=== PATIENT | male | born 1970 | race Caucasian/White ===

== ENCOUNTER → 2019-04-30 10:24 | Day surgery (SDC) | payer OTHER ==
[~2019-04-30 10:24] MED LIST: Acetaminophen TAB* 325 MG PO PRN; Bupivacaine 0.5%* 50 ML MDV VIAL ONE; Dexamethasone IV* 4 MG/ML 1 ML (4 MG) ONE; DiMENhydriNATE IV* 50 MG/ML VIAL IV PUSH PRN; HYDROmorphone INJ1* 1 MG/ML SYRINGE ONE; Ketorolac INJ* 30 MG/ML 1 ML VIAL ONE; Labetalol IV* 5 MG/ML 20 ML VIAL ONE; Lidocaine 1% w EPI 1:100,000* MDV 20 ML VIAL ONE; Lidocaine 2% PF * 5 ML VIAL ONE; Metoclopramide IV* 5 MG/ML 2 ML VIAL ONE; Midazolam* 1 MG/ML 2 ML VIAL (2 MG) ONE; Naloxone* 0.4 MG/ML 1 ML VIAL IV PRN; Ondansetron INJ* 2 MG/ML VIAL ONE; Propofol* 10 MG/ML 20 ML BTL ONE; ceFAZolin 2 GM in NS PREMIX(*) 2 GM/100 ML BAG IVPB ONE; fentaNYL* 50 MCG/ML 2 ML VIAL (100 MCG VIAL) ONE; oxyCODONE TAB* 5 MG TAB PO PRN
[2019-04-30] MEDS: fentaNYL* 50 MCG/ML 2 ML VIAL (100 MCG VIAL) IV PRN ×2 (16:47→16:53)
[2019-04-30] MEDS: Labetalol IV* 5 MG/ML 20 ML VIAL IV PUSH PRN ×2 (17:35→18:03)
[2019-04-30 18:49] VITALS: BP 154/88
--- NOTE | 2019-04-30 23:29 | OP ---
OPERATIVE REPORT: DATE OF OPERATION: 04/30/19 DATE OF : 68 SURGEON: Emil Delacruz MD. FACILITY MAINTENANCE TECHNICIAN: Archana Rayo RPA. ANESTHESIA: General. PRE-OP DIAGNOSIS: Failure, open reduction internal fixation of tibial tubercle/ patellar tendon repair. POST-OP DIAGNOSIS: Failure, open reduction internal fixation of tibial tubercle /patellar tendon repair. OPERATIVE PROCEDURE: Repair left patellar tendon/tibial tubercle repair. ESTIMATED BLOOD LOSS: Less than 25 cc. COMPLICATIONS: None. SUMMARY: Mr. Mccormack is a 48-year-old male who, earlier this month, had fallen and sustained a fracture of his tibial tubercle. His patellar tendon had torn away with a small piece of bone. On 04/09/19, he underwent an ORIF using 1 screw and 2 anchors. He seemed to have a nice solid repair as I was able to flex the knee intraoperatively and the sutures and anchors held. When he presented to the office for his followup visit a week later, x-rays showed that one of the anchors had pulled out and the tibial tubercle fragment was riding high once again. I did obtain advanced imaging that showed that his tendon was still intact. I discussed with Mr. Mccormack that I believed his repair failed and that going in again to repair it should hopefully work better as I would use different fixation to try and hold the patellar tendon and fragment of bone down. Risks of surgery such as infection, scar formation, stiffness, DVT and continued failure of the repair were discussed and he wished to proceed. DESCRIPTION OF PROCEDURE: The patient was brought to the OR and an LMA was placed. Left knee was prepped and then draped. The incision was opened using a 10-blade and I was able to come down and raise full thickness flaps relatively easily. I was able to find patellar tendon quite easily and patellar tendon still appeared to be in good condition. I could find the anchor that I had placed on the lateral side floating and then the FiberWire sutures where they had torn away from the anchor medially. Medial anchor was still retained in his bone. Similarly, I could find the FiberWire deeper underneath where it was broken as well. Those FiberWires were used to pull down the patellar tendon and patella when I sewed the new FiberWire tape. Wound was irrigated using pulse lavage. Old screw and anchor were removed. Holes were used though, so that I used a 2.5 guide and drilled across into the posterior cortex and then measured and placed two 4.5 partially threaded cortical screws. This way there would not be the threads of the screws which would cut through the suture material with tension on them. Great bite was obtained on the medial, OK bite on the lateral. FiberTape was then sewn up along the patellar tendon, lateral border of the patella, and over the top side of the patella. With pulling on the old TigerTape, I was then able to test and pull that down, and it looked like I would get a nice repair. Second FiberTape was then placed. With pulling down on the patella, one was tied and it appeared to hold down quite nicely. Small bony fragment was reapproximated to where it appeared it had been avulsed from. Second FiberTape was sewn down in similar fashion. Two tapes' tails were then sewn together anteriorly and the excess material cut. Screws were then fully tightened down and the lateral screw had a wonderful bite and the medial screw had a bit less of a wonderful bite, but still was nice and tight. Wound was again pulse lavaged. Knee was injected with an additional 10 cc of 0.5% Marcaine mixed with lidocaine with epinephrine. 10 cc had been used along the incision line. Subcutaneous tissues were reapproximated using 2-0 Vicryl. Skin was closed using aman. Sterile dressing and a Cryo/Cuff along with an immobilizer were all applied in the OR. The patient was then extubated in the OR and was stable on transfer to the recovery room. DISPOSITION/DISCHARGE SUMMARY: Mr. Mccormack is a 48-year-old male who just underwent repair of his left patellar tendon/tibial tubercle. He tolerated the procedure well and there were no complications. They are currently rolling towards the recovery room. Once he awakes a bit more from his general anesthesia and can tolerate p.o., has his pain well controlled, and has voided, he will be discharged home. Script for [place] will be e-scribed in. He has instruction to keep the dressing clean, dry, and intact for 3 days, but after that he may take the dressing down, cover sutures with Band-Aid, may shower, washing, getting it wet, but should not soak it. I would like to see him in the office in approximately 7 to 10 days. Obtain repeat x-ray and make sure that he is in the same good position that he was intraoperatively. If there are any problems or anything odd should occur, there are instructions to give the office a call. [id number]/[facility] #: [id number] MTDD
== END | disposition home or self-care (01) ==
LOC: OR 10:24
PROVIDERS: ATTEND Orthopaedic Surgery
DX: T84.117A Breakdown (mechanical) of internal fixation device of bone of left lower leg, initial encounter (principal); S76.112S Strain of left quadriceps muscle, fascia and tendon, sequela; S82.152 Displaced fracture of left tibial tuberosity; X58.XXXS Exposure to other specified factors, sequela; Y92.9 Unspecified place or not applicable; F17.210 Nicotine dependence, cigarettes, uncomplicated
CPT/HCPCS: 76000; 88300; C1713; J0690; J1100; J1170; J1885; J2250; J2405; J2704; J2765; J3010; J3490